=== PATIENT | male | born 1960 | race Caucasian/White ===

== ENCOUNTER 2021-02-04 06:32 | Outpatient (REF) | payer BC, SELFPAY ==
[2021-02-04 11:22] LABS: MANUAL DIFF FLAG NO
[2021-02-04 11:38] LABS: Basophils Percent Auto 0.4 % (0-2); Eosinophils Absolute Auto 0.2 X10*3/uL (0.0-0.4); Eosinophils Percent Auto 4.6 % (0-4); Hematocrit 43.4 % (42-52); Hemoglobin 14.4 g/dl (14.0-18.0); Imm Gran Abs Auto 0.02 X10*3/uL (0.00-0.03); Imm Gran Pct Auto 0.4 % (0.0-0.4); Lymphocytes Absolute Auto 0.8 X10*3/uL (1.2-4.9); Mean Corpuscular HGB Conc 33.2 g/dl (31.0-36.0); Mean Corpuscular Hemoglobin 32.2 pg (27.0-33.0); Mean Corpuscular Volume 97.1 fL (80-98); Mean Platelet Volume 10.7 fL (9.4-12.4); Monocytes Absolute Auto 0.4 X10*3/uL (0.1-1.2); Monocytes Percent Auto 8.3 % (2-11); Neutrophils Absolute Auto 3.2 X10*3/uL (2.0-8.3); Neutrophils Percent Auto 69.3 % (45-73); Platelet Count 172 X10*3/uL (160-400); Red Blood Count 4.47 X10*6/uL (4.60-5.80); Red Cell Distribution Width 12.5 % (11.0-16.0); White Blood Count 4.6 X10*3/uL (4.8-10.8)
[2021-02-04 11:42] LABS: Alanine Aminotransferase 34 U/L (0-40); Albumin Level 4.1 g/dL (3.5-5.0); Alkaline Phosphatase 52 U/L (39-117); Anion Gap 11 (12-20); Aspartate Amino Transferase 30 U/L (5-37); Bilirubin Total 0.8 mg/dL (0.0-1.0); Blood Urea Nitrogen 15 mg/dL (9-16); Carbon Dioxide 26 mmol/L (22-29); Chloride 106 mmol/L (96-108); Cholesterol 239 mg/dL; Estimated Glomerular Filt Rate > 60; Glucose Fasting 93 mg/dL (60-99); HDL Cholesterol 49 mg/dL; LDL Cholesterol Calculated 143 mg/dl; Potassium 4.3 mmol/L (3.3-5.1); Sodium 139 mmol/L (135-145); Triglycerides 235 mg/dL
[2021-02-04 12:05] LABS: TSH reflex Free T4 4.36 uIU/mL (0.32-4.0)
== END 2021-02-04 06:33 | disposition home or self-care (01) ==
LOC: HO.HMGCLDS 06:32
PROVIDERS: PCP Internal Medicine; Visit Provider Internal Medicine
DX: Z00.01 Encounter for general adult medical examination with abnormal findings (principal); F10.20 Alcohol dependence, uncomplicated; F41.1 Generalized anxiety disorder; K21.9 Gastro-esophageal reflux disease without esophagitis
CPT/HCPCS: 36415; 80053; 80061; 84439; 84443; 85025

== ENCOUNTER 2021-03-04 06:04 | Outpatient (REF) | payer BC, SELFPAY ==
[2021-03-04 12:18] LABS: TSH reflex Free T4 4.61 uIU/mL (0.32-4.0)
[2021-03-04 13:33] LABS: Free T4 (Free Thyroxine) 0.79 ng/dL (0.71-1.85)
== END 2021-03-04 06:05 | disposition home or self-care (01) ==
LOC: HO.HMGCLDS 06:04
PROVIDERS: PCP Internal Medicine; Visit Provider Internal Medicine
DX: R94.6 Abnormal results of thyroid function studies (principal)
CPT/HCPCS: 36415; 84439; 84443

== ENCOUNTER 2021-03-21 07:26 | Outpatient (REF) | payer BC, SELFPAY ==
[2021-03-21 10:03] LABS: TSH reflex Free T4 3.04 uIU/mL (0.32-4.0)
== END 2021-03-21 07:27 | disposition home or self-care (01) ==
LOC: HO.HMGCLDS 07:26
PROVIDERS: PCP Internal Medicine; Visit Provider Internal Medicine
DX: R79.89 Other specified abnormal findings of blood chemistry (principal)
CPT/HCPCS: 36415; 84443

== ENCOUNTER 2022-02-12 08:44 | Outpatient (REF) | payer BC, SELFPAY ==
[2022-02-12 11:23] LABS: MANUAL DIFF FLAG NO
[2022-02-12 11:41] LABS: Basophils Percent Auto 0.7 % (0-2); Eosinophils Absolute Auto 0.1 X10*3/uL (0.0-0.4); Eosinophils Percent Auto 2.3 % (0-4); Hematocrit 44.3 % (42.0-52.0); Hemoglobin 14.4 g/dl (14.0-18.0); Imm Gran Abs Auto 0.01 X10*3/uL (0.00-0.03); Imm Gran Pct Auto 0.2 % (0.0-0.4); Lymphocytes Absolute Auto 0.6 X10*3/uL (1.2-4.9); Mean Corpuscular HGB Conc 32.5 g/dl (31.0-36.0); Mean Corpuscular Hemoglobin 29.9 pg (27.0-33.0); Mean Corpuscular Volume 92.1 fL (80.0-98.0); Mean Platelet Volume 10.6 fL (9.4-12.4); Monocytes Absolute Auto 0.4 X10*3/uL (0.1-1.2); Monocytes Percent Auto 9.8 % (2-11); Neutrophils Absolute Auto 3.1 x10*3/uL (2.0-8.3); Platelet Count 190 X10*3/uL (160-400); Red Blood Count 4.81 X10*6/uL (4.60-5.80); Red Cell Distribution Width 11.9 % (11.0-16.0); White Blood Count 4.3 X10*3/uL (4.8-10.8)
[2022-02-12 12:12] LABS: Alanine Aminotransferase 39 U/L (0-40); Albumin Level 4.3 g/dL (3.5-5.0); Alkaline Phosphatase 71 U/L (39-117); Anion Gap 17 (12-20); Aspartate Amino Transferase 36 U/L (5-37); Bilirubin Total 0.4 mg/dL (0.0-1.0); Blood Urea Nitrogen 18 mg/dL (9-16); Calcium 9.2 mg/dL (8.4-10.2); Carbon Dioxide 25 mmol/L (22-29); Chloride 105 mmol/L (96-108); Cholesterol 235 mg/dL; Estimated Glomerular Filt Rate > 60; Glucose Fasting 99 mg/dL (60-99); HDL Cholesterol 38 mg/dL; LDL Cholesterol Calculated 136 mg/dl; Potassium 4.6 mmol/L (3.3-5.1); Sodium 142 mmol/L (135-145); Total Protein 6.3 g/dL (6.5-8.0); Triglycerides 306 mg/dL
[2022-02-12 12:17] LABS: TSH reflex Free T4 2.14 uIU/mL (0.32-4.0)
== END 2022-02-12 08:45 | disposition home or self-care (01) ==
LOC: HO.HMGCLDS 08:44
PROVIDERS: PCP Internal Medicine; Visit Provider Internal Medicine
DX: Z00.01 Encounter for general adult medical examination with abnormal findings (principal); R79.89 Other specified abnormal findings of blood chemistry; F41.1 Generalized anxiety disorder
CPT/HCPCS: 36415; 80053; 80061; 84443; 85025

== ENCOUNTER 2023-02-22 11:39 | Outpatient (AMB) | payer BC, SELFPAY ==
--- NOTE | 2023-02-22 11:42 | MHC.PC.OV ---
Vital Signs 02/22/23 11:51 Height 5 ft 9 in Weight 176 lb BMI 26.0 BP 152/84 H Blood Pressure Location Rt brachial Position Sitting Pulse 70 Pulse Source Pulse Oximeter Pulse Oximetry (%) 98 Oxygen Delivery Method Room Air Intake Visit Reasons: PE ~ Rescheduled 02/18 Allergies No Known Allergies Allergy (Verified 02/22/23 11:42) Medication List - Last Reconciled 02/22/23 by Mehreen Thapa MD aspirin 81 mg PO DAILY levothyroxine 25 mcg PO DAILY 90 days [id number] mcg (Centrum Silver Men) 1 tab PO DAILY pantoprazole 40 mg PO DAILY 90 days Tobacco use date assessed: 02/22/23 Fall risk assessment: No Falls in past year Last assessed Fall Risk: 02/22/23 Dental Screening Dental Screen Date: 02/22/23 Did you have a dental visit in the last 12 months?: Yes Did you have a dental problem in the last 6 months where you did not have access to dental care?: No Was dental information given to patient?: Patient has dentist HPI PE ~ Rescheduled 02/18 HPI Details Patient is 62-year-old gentleman came in today for physical examination Patient was diagnosed with melanoma , and had a surgery left side of chest. He is having 6 month follow-up with the Dermatology His blood pressure is 152/84, he said he was at his dentist office to couple of months ago when it was elevated at that time as well I have told him to get a blood pressure monitor and start monitoring his blood pressure at home he is to give me a call in couple of weeks with readings and then we will decide. Lab order placed to be done fasting Patient is taking levothyroxine 25 mcg And pantoprazole 40 mg only if needed. Continue to drink alcohol as well, we talked about available help patient get back to me if he decided to get assistance. On physical examination he has pain over left rotator cuff with lifting his arms, he plays golf, I offered orthopedic appointment which he said he will hold off for now Follow-up 1 year for physical examination or early, depending on lab report and blood pressure readings. [facility] Social History Housing: House Patient Tobacco Use Status: Former Tobacco user Quit Date: 30 years ago e-Cigarette/Vaping Use: Never Used service: No Current occupational status: retired Cognitive needs: No Hearing needs: No Vision needs: Yes Questionnaire PHQ-9 Over the last 2 weeks, how often have you been bothered by any of the following problems? 1. Little interest or pleasure in doing things: not at all 2. Feeling down, depressed, or hopeless: not at all 3. Trouble falling or staying asleep, or sleeping too much: not at all 4. Feeling tired or having little energy: not at all 5. Poor appetite or overeating: not at all 6. Feeling bad about yourself - or that you are a failure or have let yourself or your family down: not at all 7. Trouble concentrating on things, such as reading the newspaper or watching television: not at all 8. Moving or speaking so slowly that other people could have noticed. Or the opposite - being so fidgety or restless that you have been moving around a lot more than usual: not at all 9. Thoughts that you would be better off or of hurting yourself in some way: not at all Total score: 0 Depression Screening Interpretation: Negative 72612 - PHQ-9 Billing: Yes Source: Developed by Drs. Rah Bynum, Arlene Velazquez, Francisco Amato and colleagues, with an educational ignacio from [employer]. Thrive Questionnaire Date Thrive assessed: 02/22/23 I am a: Patient What is your living situation today?: I have a steady place to live Within the past 12 months, did the food you bought not last and you didn't have the money to get more?: Never true Within the past 12 months, did you worry whether your food would run out before you got money to buy more?: Never true Do you have trouble paying for medicines?: No Do you have trouble getting transportation to medical appointments?: No Do you have trouble paying your heating and electricity bill?: No Do you have trouble taking care of your child, family member or friend?: No Do you have trouble with day-to-day activities such as bathing, preparing meals, shopping, managing finances, etc.?: No Are you currently unemployed and looking for a job?: No Are you interested in more education?: No AUDIT C Alcohol Use Questionnaire (AUDIT-C) Score Reviewed/Action Taken: Yes ARMAND-7 AMB Questionnaire ARMAND-7 Date ARMAND - 7 assessed: 02/22/23 Feeling nervous, anxious, or on edge: 0 = Not at all Not being able to stop or control worryin = Not at all Worrying too much about different things: 0 = Not at all Trouble relaxin = Several days Being so restless that it is hard to sit still: 1 = Several days Becoming easily annoyed or irritable: 0 = Not at all Feeling afraid as if something awful might happen: 0 = Not at all Total ARMAND-7 score (0-4 normal; 5-9 mild; 10-14 moderate; 15-21 severe): 2 Source: Developed by Drs. Rah Bynum, Arlene Velazquez, Francisco Amato and colleagues, with an educational ignacio from [employer]. ARMAND-7 Assessment Billing ARMAND-7 Assessment Tool: ARMAND-7 Assessment 77134 Review of Systems Const Denies chills, Denies fever(s) and Denies headache(s) Eyes Denies blurry vision ENT Denies headache(s), Denies nasal discharge, Denies nasal obstruction, Denies odynophagia and Denies sinus pain Card Denies chest pain at rest and Denies chest pain with activity Resp Denies cough and Denies hemoptysis GI Denies diarrhea, Denies odynophagia, Denies vomiting and Denies hematemesis Reports as per HPI Musc Denies abnormal gait Skin/Breast Reports as per HPI Neuro Denies Neuro-related abnormal movements, Denies Abnormal speech present, Denies abnormal gait, Denies headache(s) and Denies Sensory deficit (Neuro) Psych Denies mood swings and Denies paranoia Endo Reports as per HPI Terrance/Lymph Reports as per HPI Aller/Immun Reports as per HPI Physical exam (Primary Care) Vital Signs: Last Vital Signs Pulse 70 02/22/23 11:51 BP 152/84 H 02/22/23 11:51 Pulse Ox 98 02/22/23 11:51 Oxygen Delivery Method Room Air 02/22/23 11:51 BMI result Body Mass Index 26.0 Tobacco/Smoking Status: Tobacco use Status Tobacco use date assessed 02/22/23 02/22/23 11:47 Patient Tobacco Use Status Former Tobacco user 02/22/23 11:42 e-Cigarette/Vaping Use Never Used 02/22/23 11:42 PHQ-9: PHQ-9 Score PHQ-9: Total score 0 02/22/23 12:13 Depression Screening Interpretation: Negative Thrive Assessment: Date of Thrive Assessment Date Thrive assessed 02/22/23 02/22/23 12:13 Const General: cooperative, comfortable and no acute distress Orientation/consciousness: patient oriented x3 HENMT Head: Yes normocephalic and Yes atraumatic Eyes General: appearance normal, both eyes and all related structures Pupils: Equal, round and reactive pupils present EOM: EOMs intact bilaterally Neck Neck: Yes supple and No lymphadenopathy Thyroid: Thyroid normal Lymphatic: no lymphadenopathy noted Resp Effort & Inspection: normal respiratory effort and able to speak in complete sentences Auscultation: clear to auscultation bilaterally Cardio Heart sounds: S1 normal heart sound present and S2 normal heart sound present GI Palpation (GI): Soft to palpation and nontender Auscultation: normal bowel sounds General: Yes no CVA tenderness Back/Spine/Pelvis Back: no CVA tenderness Skin General skin exam: elasticity normal and turgor normal Neuro General: patient oriented x3 and gait normal Cranial nerves: Yes Equal, round and reactive pupils present Speech: No Abnormal speech present Sensory Exam: No Sensory deficit (Neuro) Coordination: tandem gait normal and Romberg test negative Extrem General: Yes normal exam except as noted and No edema Assessment and Plan Assessment & Plan (1) Encounter for general adult medical examination with abnormal findings: Code(s): Z00.01 - Encounter for general adult medical examination with abnormal findings (2) Alcoholism: Code(s): F10.20 - Alcohol dependence, uncomplicated (3) Acid reflux: Code(s): K21.9 - Gastro-esophageal reflux disease without esophagitis Qualifiers: Esophagitis presence: without esophagitis Qualified Code(s): K21.9 - Gastro-esophageal reflux disease without esophagitis (4) Other specified hypothyroidism: Code(s): E03.8 - Other specified hypothyroidism (5) Disorder of left rotator cuff: Code(s): M67.912 - Unspecified disorder of synovium and tendon, left shoulder (6) History of melanoma: Code(s): Z85.820 - Personal history of malignant melanoma of skin Plan Patient is 62-year-old gentleman came in today for physical examination His blood pressure is 152/84, he said he was at his dentist office to couple of months ago when it was elevated at that time as well I have told him to get a blood pressure monitor and start monitoring his blood pressure at home he is to give me a call in couple of weeks with readings and then we will decide. Lab order placed to be done fasting Patient is taking levothyroxine 25 mcg And pantoprazole 40 mg only if needed. Continue to drink alcohol as well, we talked about available help patient get back to me if he decided to get assistance. On physical examination he has pain over left rotator cuff with lifting his arms, he plays golf, I offered orthopedic appointment which he said he will hold off for now Follow-up 1 year for physical examination or early, depending on lab report and blood pressure readings. Orders: Orders Comprehensive [place]. Panel Fast Today E03.8 - Other specified hypothyroidism, F10.20 - Alcohol dependence, uncomplicated, K21.9 - Gastro-esophageal reflux disease without esophagitis, M67.912 - Unspecified disorder of synovium and tendon, left shoulder, Z00.01 - Encounter for general adult medical examination with abnormal findings TSH reflex Free T4 Today E03.8 - Other specified hypothyroidism, F10.20 - Alcohol dependence, uncomplicated, K21.9 - Gastro-esophageal reflux disease without esophagitis, M67.912 - Unspecified disorder of synovium and tendon, left shoulder, Z00.01 - Encounter for general adult medical examination with abnormal findings Vitamin B12 Today E03.8 - Other specified hypothyroidism, F10.20 - Alcohol dependence, uncomplicated, K21.9 - Gastro-esophageal reflux disease without esophagitis, M67.912 - Unspecified disorder of synovium and tendon, left shoulder, Z00.01 - Encounter for general adult medical examination with abnormal findings Vitamin D 25-OH (D2 and D3) Today E03.8 - Other specified hypothyroidism, F10.20 - Alcohol dependence, uncomplicated, K21.9 - Gastro-esophageal reflux disease without esophagitis, M67.912 - Unspecified disorder of synovium and tendon, left shoulder, Z00.01 - Encounter for general adult medical examination with abnormal findings Complete Blood Count Auto Diff Today E03.8 - Other specified hypothyroidism, F10.20 - Alcohol dependence, uncomplicated, K21.9 - Gastro-esophageal reflux disease without esophagitis, M67.912 - Unspecified disorder of synovium and tendon, left shoulder, Z00.01 - Encounter for general adult medical examination with abnormal findings Lipid Panel Today E03.8 - Other specified hypothyroidism, F10.20 - Alcohol dependence, uncomplicated, K21.9 - Gastro-esophageal reflux disease without esophagitis, M67.912 - Unspecified disorder of synovium and tendon, left shoulder, Z00.01 - Encounter for general adult medical examination with abnormal findings Coding Level of Care Code Est Pt Prev Care 40-64y(76727) Diagnoses Encounter for general adult medical examination with abnormal findings Z00.01 Alcoholism F10.20 Gastroesophageal reflux disease without esophagitis K21.9 Esophagitis presence: without esophagitis Other specified hypothyroidism E03.8 Disorder of left rotator cuff M67.912 History of melanoma Z85.820 Additional Codes ARMAND-7 Assessment Billing - ARMAND-7 Assessment Tool: ARMAND-7 Assessment [id number] ([id number])
[2023-02-22 11:51] VITALS: BP 152/84; PULSE 70; O2SAT 98; BMI 26.0
== END 2023-02-22 14:41 | disposition home or self-care (01) ==
PROVIDERS: PCP Internal Medicine; Visit Provider Internal Medicine
DX: Z00.00 Encounter for general adult medical examination without abnormal findings (principal); F10.20 Alcohol dependence, uncomplicated; K21.9 Gastro-esophageal reflux disease without esophagitis; E03.8 Other specified hypothyroidism; Z85.820 Personal history of malignant melanoma of skin; M67.912 Unspecified disorder of synovium and tendon, left shoulder
CPT/HCPCS: 99396

== ENCOUNTER 2023-02-23 06:14 | Outpatient (REF) | payer BC, SELFPAY ==
[2023-02-23 12:13] LABS: MANUAL DIFF FLAG NO
[2023-02-23 12:28] LABS: Basophils Percent Auto 0.4 % (0-2); Eosinophils Absolute Auto 0.2 X10*3/uL (0.0-0.4); Eosinophils Percent Auto 2.8 % (0-4); Hematocrit 46.4 % (42.0-52.0); Hemoglobin 15.4 g/dl (14.0-18.0); Imm Gran Abs Auto 0.02 X10*3/uL (0.00-0.03); Imm Gran Pct Auto 0.4 % (0.0-0.4); Lymphocytes Absolute Auto 0.7 X10*3/uL (1.2-4.9); Lymphocytes Percent Auto 12.9 % (20-40); Mean Corpuscular HGB Conc 33.2 g/dl (31.0-36.0); Mean Corpuscular Hemoglobin 31.9 pg (27.0-33.0); Mean Corpuscular Volume 96.1 fL (80.0-98.0); Mean Platelet Volume 10.5 fL (9.4-12.4); Monocytes Absolute Auto 0.5 X10*3/uL (0.1-1.2); Monocytes Percent Auto 8.8 % (2-11); Neutrophils Percent Auto 74.7 % (45-73); Platelet Count 165 X10*3/uL (160-400); Red Blood Count 4.83 X10*6/uL (4.60-5.80); Red Cell Distribution Width 12.5 % (11.0-16.0); White Blood Count 5.4 X10*3/uL (4.8-10.8)
[2023-02-23 12:57] LABS: Alanine Aminotransferase 36 U/L (0-40); Albumin Level 4.5 g/dL (3.5-5.0); Alkaline Phosphatase 55 U/L (39-117); Anion Gap 14 (12-20); Aspartate Amino Transferase 47 U/L (5-37); Bilirubin Total 0.7 mg/dL (0.0-1.0); Blood Urea Nitrogen 16 mg/dL (9-16); Calcium 9.6 mg/dL (8.4-10.2); Carbon Dioxide 26 mmol/L (22-29); Chloride 107 mmol/L (96-108); Cholesterol 248 mg/dL (<200); Estimated Glomerular Filt Rate > 60; Glucose Fasting 89 mg/dL (60-99); HDL Cholesterol 56 mg/dL (>40); LDL Cholesterol Calculated 128 mg/dL (<100); Potassium 4.5 mmol/L (3.3-5.1); Sodium 142 mmol/L (135-145); Total Protein 6.8 g/dL (6.5-8.0); Triglycerides 324 mg/dL (<150)
[2023-02-23 13:19] LABS: TSH reflex Free T4 3.37 uIU/mL (0.32-4.0)
[2023-02-23 13:25] LABS: Vitamin B12 511 pg/mL (200-900)
[2023-02-27 16:24] LABS: Vitamin D 25-OH, D2 <4 ng/mL; Vitamin D 25-OH, D3 58 ng/mL; Vitamin D 25-OH, Total 58 ng/mL (30-100)
== END 2023-02-23 06:15 | disposition home or self-care (01) ==
LOC: HO.HMGCLDS 06:14
PROVIDERS: PCP Internal Medicine; Visit Provider Internal Medicine
DX: Z00.01 Encounter for general adult medical examination with abnormal findings (principal); K21.9 Gastro-esophageal reflux disease without esophagitis; F10.20 Alcohol dependence, uncomplicated; E03.8 Other specified hypothyroidism; M67.912 Unspecified disorder of synovium and tendon, left shoulder
CPT/HCPCS: 36415; 80053; 80061; 82306; 82607; 84443; 85025